=== PATIENT | male | born 1970 | race Caucasian/White ===

== ENCOUNTER → 2021-02-01 | Outpatient (CLI) | payer OTHER | LOC: WCC 15:45 | PROVIDERS: ATTEND Plastic Surgery | DX: S91.309A Unspecified open wound, unspecified foot, initial encounter (principal); L03.115 Cellulitis of right lower limb; M10.9 Gout, unspecified; R60.0 Localized edema; X58.XXXA Exposure to other specified factors, initial encounter ==